=== PATIENT | female | born 1980 | race African-American/Black ===

== ENCOUNTER 2023-07-13 23:25 | Emergency (ER) | payer OTHER, MEDICAID, SELFPAY ==
[2023-07-13 23:30] VITALS: BP 217/147; PULSE 115; RESP 16; TEMP 36.6; O2SAT 97; BMI 25.9
--- NOTE | 2023-07-13 23:49 | EX.ED.DYSGE1 ---
HPI History of Present Illness Chief Complaint: Hypertension Informant: patient Onset/Context/Timing Onset: Today Context: Gradual Onset Timing: Continuous Worsened by: Nothing Relieved by: Nothing Narrative Narrative: Patient presents with elevated blood pressure that was noticed tonight. Patient states that she was at a opiate rehab facility when they checked her blood pressure tonight. Patient states it was very high. Patient states she has not been taking her antihypertensive medications for past several months due to insurance coverage. Patient states she used to be on lisinopril and a beta-vic. Patient admits to occasional back pain. Patient denies any chest pain or shortness of breath. Patient denies any headaches. Patient denies any nausea or vomiting. Patient denies any fevers or chills. PFSH [facility] Medical History (Updated 07/14/23 @ 01:[address] Carson Stack DO) Fibromyalgia Hypertension Kidney stones Osteoporosis Home Medications lisinopril 20 mg-hydrochlorothiazide 25 mg tablet (Zestoretic) 1 ea PO DAILY 10/27/16 [History Last Taken Unknown] clonidine HCl 0.2 mg tablet 0.2 mg PO DAILY #10 tabs 07/14/23 [Rx Last Taken Unknown] Allergy/AdvReac Type Severity Reaction Status Date / Time acetaminophen Allergy Other Verified 07/13/23 23:26 [From Darvocet-N] ketorolac [From Toradol] Allergy Other Verified 07/13/23 23:26 Penicillins Allergy Rash Verified 07/13/23 23:26 propoxyphene Allergy Other Verified 07/13/23 23:26 [From Darvocet-N] sumatriptan [From Imitrex] Allergy Other Verified 07/13/23 23:26 topiramate [From Topamax] Allergy Other Verified 07/13/23 23:26 tramadol Allergy Other Verified 07/13/23 23:26 Surgical History (Updated 07/13/23 @ 23:[address] Carson Stack DO) History of appendectomy History of back surgery History of hysterectomy Social History (Updated 07/13/23 @ 23:[address] Carson Stack DO) Smoking Status: Current every day smoker tobacco type: cigarettes ROS ROS ED Constitutional Constitutional ED: Denies chills or fever(s) Eyes Eyes: Denies blurry vision or change in vision ENT ENT ED: Denies rhinorrhea or sore throat Cardiovascular Cardiovascular: Denies chest pain or palpitations Respiratory/Chest Respiratory/Chest: Denies cough or dyspnea Gastrointestinal Gastrointestinal: Denies nausea or vomiting Genitourinary Genitourinary ED: Denies dysuria or hematuria Musculoskeletal Musculoskeletal: Reports back pain; Denies neck pain Integumentary Denies abscess or rash Neurologic Neurologic: Denies headache(s) or weakness Allergic/Immunologic Allergic/Immunologic ED: Denies mouth swelling or urticaria EXAM Physical Exam Const Vital Signs: 07/13/23 23:26 07/13/23 23:30 07/14/23 00:31 Temperature 97.8 F Temperature Source Temporal Pulse Rate 115 H 104 H Respiratory Rate 16 20 H Respiratory Effort Normal Non-Labored Respiratory Pattern Normal Blood Pressure 217/147 H 212/134 H Blood Pressure Mean 170 160 Pulse Ox 97 94 Oxygen Delivery Method Room Air Room Air 07/14/23 00:56 07/14/23 01:19 Temperature Temperature Source Pulse Rate 94 86 Respiratory Rate 16 16 Respiratory Effort Respiratory Pattern Blood Pressure 187/112 H 152/104 H Blood Pressure Mean 137 120 Pulse Ox 96 96 Oxygen Delivery Method Room Air Room Air Positive well nourished and well developed General Appearance ED: well developed and NAD HEENT Reports moist mucous membranes Neck supple and no JVD Chest Wall palpation of chest normal Resp normal respiratory effort and clear to auscultation bilaterally Cardio regular rate and regular rhythm GI non-tender and non-distended Palpation: soft Extremity normal to inspection General Extremety ED: Negative for edema or tenderness General Extremity: Negative for edema Neuro oriented x3, CN's II-XII intact bilaterally and no sensory deficits noted Sensorium / Orientation: alert Motor Exam: strength 5/5 throughout Psych mental status grossly normal MDM MDM MDM Narrative Medical decision making narrative: Differential diagnosis includes hypertensive urgency, uncontrolled hypertension, cardiac dysrhythmia, opiate withdrawal, and medication noncompliance. EKG will be obtained to assess for cardiac dysrhythmia and cardiac ischemia. Chest x-ray will be obtained to assess for cardiomegaly and widened mediastinum. CBC will be obtained to assess for leukocytosis and anemia. Basic metabolic profile will be obtained to assess for electrolyte abnormality and renal function. High-sensitivity troponin will be obtained to assess for cardiac ischemia. Lab Data Labs: Laboratory Results - last 24 hr 07/14/23 00:16 WBC 5.9 RBC 5.14 Hgb 12.7 Hct 41.6 MCV 80.9 L MCH 24.7 L MCHC 30.5 L RDW Std Deviation 42.9 RDW Coeff of Addie 14.5 Plt Count 250 MPV 9.9 Immature Gran % (Auto) 0.300 Neut % (Auto) 44.0 L Lymph % (Auto) 43.5 H Casey % (Auto) 7.5 Eos % (Auto) 3.8 Baso % (Auto) 0.9 Absolute Neuts (auto) 2.6 Absolute Lymphs (auto) 2.55 Nucleated RBC % 0 Atypical Lymphocytes 1+ Sodium 139 Potassium 3.4 L Chloride 107 Carbon Dioxide 28.0 Anion Gap 4 L BUN 14 Creatinine 1.17 H Estim Creat Clear Calc 63.40 Est GFR (MDRD) Af Amer 65 Est GFR (MDRD) Non-Af 54 L BUN/Creatinine Ratio 12.0 Glucose 128 H Calcium 10.0 Troponin I High Sens 34 Radiography Chest X-Ray - ED: 2 View, Read by ED Physician, Read by Radiologist and No Acute Disease Diagnostic Testing: Clinical Impression(s) from Imaging Studies Chest X-Ray 07/14/23 00:00 IMPRESSION: No evidence of cardiopulmonary disease. Electronically Signed: Francisco J DiazDO at 0:44 EST , PA and lateral chest x-ray was obtained. There are 2 views. On my independent interpretation, lung del valle are clear. There is normal cardiac silhouette. Bony thorax is normal. There is no acute process noted. Radiologist also interpreted the x-ray and agrees. EKG Initial EKG: Attestation: I personally reviewed and interpreted this EKG as follows: Interpretation: Sinus Tachycardia (106) Comments: EKG was obtained. On my independent interpretation, it shows a sinus tachycardia with a rate of 106. MT interval was normal at 154 ms. QRS interval is normal at 82 ms. QTc interval is normal at 483 ms. Worden was normal at 7. There are no acute ST or T wave changes noted. There are no prior EKGs available for comparison. Prior EKG tracings: not available for review Prior: No Prior Treatment and Re-Evaluation :: Patient was given a dose of clonidine here. Patient's blood pressure improved to 130/98. Patient was given a prescription for clonidine. Patient was instructed to follow-up with a primary care physician in 5 to 7 days for reevaluation and further management of her blood pressure. Patient was instructed to keep a log of her daily blood pressures. Patient was instructed to return if worse in any way. Patient understood and was agreeable with the plan. All questions were answered. Discharge Plan Triage Chief Complaint: Hypertension ED Provider: Carson Stack Dx/Rx/DC Orders Clinical Impression: Hypertension Instructions: ED Hypertension New Begin Treatment Prescriptions: New clonidine HCl 0.2 mg tablet 0.2 mg PO DAILY Qty: 10 0RF No Action lisinopril-hydrochlorothiazide [Zestoretic] 1 EACH tablet 1 ea PO DAILY Primary Care Provider: Care Physician,No Primary Referrals: Denisse Estrada [Non-Staff] - 3-5 Days Care Physician,No Primary [Primary Care Provider] - Activity Restrictions/Additional Instructions: Keep a log of your blood pressures daily. Disposition Disposition: Home, Self Care
--- NOTE | 2023-07-14 | RAD_ITS ---
INDICATION: Hypertension EXAMINATION/TECHNIQUE: X-RAY - XR Chest 2 Views COMPARISON: None. FINDINGS: LINES/DEVICES: None. LUNGS: No consolidation or evidence of an effusion. No evidence of edema or a pneumothorax. MEDIASTINUM AND CARDIOVASCULAR STRUCTURES: Cardiac silhouette is normal in size and contour. Mediastinum is unremarkable. BONES AND SOFT TISSUES: No acute abnormality. RAD/Chest PA and Lateral IMPRESSION: No evidence of cardiopulmonary disease. Electronically Signed: Francisco J Diaz DO at 0:44 EST ,
[2023-07-14] MEDS: cloNIDine HCl 0.2 MG Tablet 0.200000000000000011 MG PO (00:27)
[2023-07-14 00:31] VITALS: BP 212/134; PULSE 104; RESP 20; O2SAT 94
[2023-07-14 00:36] LABS: Absolute Lymphocyte Count 2.55 X10^3/uL (0.83-4.51); Absolute Neutrophil Count 2.6 X10^3/uL (2.0-7.7); Basophil# 0.05 X10^3/uL; Basophil% 0.9 % (0-1); Eosinophil# 0.22 X10^3/uL; Eosinophils% 3.8 % (0-5); Hematocrit 41.6 % (37-47); Hemoglobin 12.7 g/dL (12.0-15.0); Lymphocyte # 2.55 X10^3/ul (0.83-4.51); Lymphocyte % 43.5 % (19-41); Mean Corp Hgb Conc 30.5 g/dL (32-36); Mean Corpuscular Hgb 24.7 pg (27.0-32.0); Mean Corpuscular Volume 80.9 fL (81-99); Mean Platelet Vol. 9.9 fl (6.2-12.0); Monocyte# 0.44 X10^3/uL; Monocyte% 7.5 % (0-10); NRBC Flagged by Analyzer 0 % (0-5); Neutrophil # 2.58 X10^3/uL (2.7-7.7); POSITIVE MORPHOLOGY YES; Platelet Count 250 K/mm3 (150-450); RBC Distribution Width CV 14.5 % (11.6-14.6); RBC Distribution Width SD 42.9 fl (35.1-43.9); Red Blood Count 5.14 M/mm3 (4.2-5.4); White Blood Count 5.9 K/mm3 (4.4-11.0)
[2023-07-14 00:40] LABS: Differential Indicated SCAN CRITERIA MET
[2023-07-14 00:51] LABS: Anion Gap 4 (5-15); BUN 14 mg/dL (7-18); Chloride 107 mmol/L (98-107); Creatinine, Serum 1.17 mg/dL (0.55-1.02); EST Glomerular Filtration Rate 54 mL/min (>60); Est Glom Filt Rate - Afr Amer 65 mL/min (>60); Glucose 128 mg/dL (74-106); Potassium 3.4 mmol/L (3.5-5.1); Sodium Level 139 mmol/L (136-145); Troponin-I HS 34 pg/mL (3.0-54.0)
[2023-07-14 00:56] VITALS: BP 187/112; PULSE 94; RESP 16; O2SAT 96
[2023-07-14 01:08] LABS: Atypical Lymphocyte 1+ %
[2023-07-14 01:19] VITALS: BP 152/104; PULSE 86; RESP 16; O2SAT 96
[2023-07-14 01:43] VITALS: BP 130/98; PULSE 92; RESP 19; O2SAT 99
[2023-07-14 01:58] VITALS: PULSE 90; RESP 16; O2SAT 96
== END 2023-07-14 01:58 | disposition home or self-care (01) ==
PROVIDERS: Emergency Provider Emergency Medicine; Visit Provider Emergency Medicine
DX: I10 Essential (primary) hypertension (principal); T46.4X6A Underdosing of angiotensin-converting-enzyme inhibitors, initial encounter; T44.7X6A Underdosing of beta-adrenoreceptor antagonists, initial encounter; Z91.120 Patient's intentional underdosing of medication regimen due to financial hardship; M54.9 Dorsalgia, unspecified; F17.210 Nicotine dependence, cigarettes, uncomplicated
CPT/HCPCS: 71046; 80048; 84484; 85025; 93005; 99283

== ENCOUNTER 2024-02-17 00:39 | Emergency (ER) | payer OTHER, MEDICAID, SELFPAY ==
[2024-02-17] VITALS (14 sets, daily range): BP systolic 157–235; BP diastolic 60–150; PULSE 100–110; RESP 12–18; TEMP 36.7–36.8; O2SAT 97–100; BMI 27.6
--- NOTE | 2024-02-17 00:50 | CT_ITS ---
INDICATION: left flank pain EXAMINATION: CT ABDOMEN AND PELVIS WITHOUT CONTRAST - CT Abdomen And Pelvis W/O Contrast Injection TECHNIQUE: Helically acquired images were obtained of the abdomen and pelvis without oral or IV contrast. The protocol utilizes one or more of the following dose reduction techniques: automated exposure control, adjustment of mA and/or kV according to patient size,and/or use of iterative reconstruction technique. IV Contrast dosage and agent: None. Oral contrast: None. RADIATION DOSAGE (If Supplied By Facility): CTDIvol = ( 8.55 ) mGy, DLP = ( 401.41 ) mGycm COMPARISON: FINDINGS: LOWER CHEST: Lung bases are clear. No cardiomegaly or pericardial effusion. LIVER: Homogeneous. No focal mass. GALLBLADDER AND BILIARY TREE: No calcified gallstones. No gallbladder distension or wall edema. No intra- or extrahepatic biliary ductal dilation. PANCREAS: No focal cystic or solid mass. SPLEEN: Normal size without focal cystic or solid mass. ADRENAL GLANDS: No nodules. KIDNEYS AND URETERS: Bilateral kidney stones. There is moderate to severe left hydronephrosis due to the presence of 2 stones in the proximal left ureter at the UPJ measuring respectively 5 mm and 7 mm. There is perinephric fat stranding on the left side suggesting pyelonephritis. PERITONEUM: No ascites or free air. No other fluid collection. BOWEL: No evidence of acute appendicitis. No stomach or bowel distension. No focal inflammatory change. LYMPH NODES: No enlarged mesenteric or retroperitoneal lymph nodes. VESSELS: Aorta is non-dilated. URINARY BLADDER: Unremarkable. REPRODUCTIVE ORGANS: No pelvic masses. ABDOMINAL WALL: Umbilical hernia measures 4 cm containing fat. BONES: There is severe disc narrowing with advanced endplate erosions at L4-5. CT/Abdomen/Pelvis without Cont IMPRESSION: Bilateral kidney stones. There is moderate to severe left hydronephrosis due to the presence of 2 stones in the proximal left ureter at the UPJ measuring respectively 5 mm and 7 mm. There is perinephric fat stranding on the left side suggesting pyelonephritis. Severe disc narrowing with endplate erosions at L4-5 suggesting discitis osteomyelitis. Further evaluation by MRI would be helpful. Electronically Signed: Jevon Canas MD at 1:59 EDT ,
--- NOTE | 2024-02-17 00:51 | EX.ED.DYSGE1 ---
HPI History of Present Illness Chief Complaint: Flank Pain Detail of Chief Complaint: Flank pain Informant: patient Narrative Narrative: Patient presents with left flank pain that started around 2 PM yesterday. Pains been intermittent. Currently rates it a 10 out of 10. She has had nausea but no vomiting. Pain feels similarly to prior kidney stones. She complains of some frequency and urgency. Denies hematuria. Denies fevers. [facility] Medical History (Updated 02/17/24 @ 03:[address] Dannie Harper, DO) Kidney stones Fibromyalgia Osteoporosis Hypertension Home Medications ?Medication ?Instructions ?Recorded ?Last Taken ?Type NK 02/17/24 Unknown History Allergy/AdvReac Type Severity Reaction Status Date / Time acetaminophen (From Allergy Other Verified 02/17/24 00:46 Darvocet-N) ketorolac (From Toradol) Allergy Other Verified 02/17/24 00:46 Penicillins Allergy Rash Verified 02/17/24 00:46 propoxyphene (From Allergy Other Verified 02/17/24 00:46 Darvocet-N) sumatriptan (From Imitrex) Allergy Other Verified 02/17/24 00:46 topiramate (From Topamax) Allergy Other Verified 02/17/24 00:46 tramadol Allergy Other Verified 02/17/24 00:46 Surgical History History of back surgery History of hysterectomy History of appendectomy Social History (Updated 07/13/23 @ 23:[address] Carson Stack, DO) Smoking Status: Current every day smoker tobacco type: cigarettes ROS ROS ED Review of Systems ROS Unobtainable: other Constitutional Constitutional ED: Reports lethargy; Denies chills, fever(s), sweats or weight loss Eyes Eyes: Denies blurry vision, change in vision or diplopia ENT ENT ED: Denies rhinorrhea or sore throat Cardiovascular Cardiovascular: Reports chest pain and racing heartbeat; Denies orthopnea Respiratory/Chest Respiratory/Chest: Denies cough, dyspnea, dyspnea on exertion, orthopnea or sputum Gastrointestinal Gastrointestinal: Reports abdominal pain and nausea; Denies diarrhea or vomiting Genitourinary Genitourinary ED: Reports urinary frequency; Denies dysuria or hematuria Musculoskeletal Musculoskeletal: Reports back pain; Denies arthralgias, myalgias or neck pain Integumentary Denies abscess, Abrasions or rash Neurologic Neurologic: Denies headache(s) or weakness Psychiatric Psychiatric: Denies anxiety, depression or suicidal thoughts Endocrine Endocrinology: Denies polydipsia, polyphagia or polyuria Hematologic/Lymphatic Hematologic/Lymphatic: Denies easy bleeding, easy bruising or lymphadenopathy Allergic/Immunologic Allergic/Immunologic ED: Denies mouth swelling, tongue swelling or urticaria EXAM Physical Exam Const Vital Signs: 02/17/24 00:42 02/17/24 02:41 Temperature 98.3 F Temperature Source Temporal Pulse Rate 100 100 Respiratory Rate 16 18 Blood Pressure 235/150 H 224/134 H Blood Pressure Mean 178 164 Pulse Ox 100 99 Oxygen Delivery Method Room Air Room Air Positive well nourished and well developed General Appearance ED: well developed and NAD HEENT Reports TM's clear and moist mucous membranes normocephalic and atraumatic; Negative for trauma or tenderness Tympanic Membrane ED: Yes TM's clear Eyes PERRL and EOMs intact bilaterally General Eye ED: Negative for pale conjunctiva or scleral icterus Neck no lymphadenopathy, supple and no JVD General: Negative for tenderness Chest Wall inspection of chest normal and palpation of chest normal Chest: Negative for tenderness Resp normal respiratory effort and clear to auscultation bilaterally Effort and Inspection: Negative for respiratory distress or pain with movement Auscultation: Negative for rhonchi, wheezes or diminished lung sounds Cardio regular rate, regular rhythm, S1 normal heart sound, S2 normal heart sound and no murmurs Peripheral Pulses: pulses 2+ throughout GI normal to inspection, nondistended, normoactive bowel sounds, soft to palpation, non-distended and no masses GI Narrative: Tenderness palpation over the left lower quadrant with some mild guarding. There is no rebound, rigidity, or peritoneal signs. Patient does have some CVA tenderness on the left. Back/Spine no thoracic nor lumbar tenderness Back/Spine Narrative: Left CVA tenderness Extremity normal to inspection General Extremety ED: Negative for edema General Extremity: Negative for edema Neuro oriented x3, CN's II-XII intact bilaterally, no sensory deficits noted and gait normal Sensorium / Orientation: awake, alert, oriented to person, oriented to place and oriented to time Motor Exam: strength 5/5 throughout and strength abnormal Psych mental status grossly normal Skin no rashes or lesions noted and no wounds MDM MDM MDM Narrative Medical decision making narrative: Patient presents with left-sided flank pain typical of prior history of kidney stone. She presented hypertensive. IV line established. She was medicated with morphine and Zofran. She was a difficult IV stick. CBC with differential obtained showing a 7.2 hemoglobin 13.7 platelet count of 198. Chemistries unremarkable. Urinalysis without signs of infection. CT flank obtained showed left hydronephrosis with 2 proximal ureter stones 1 measuring 5 mm and one 7 mm. There was some perinephric stranding with question of pyelonephritis however her urinalysis does not show signs of infection. Patient had to be medicated with Dilaudid for continued pain. I did give her hydralazine for elevated blood pressures and gave her 10 mg IV. We do not have urology coverage. She will require transfer to be evaluated by urology. Attempted multiple hospital systems and had a difficult time finding availability for transfer. I did discuss case with [facility] in [place] and spoke with who accepted transfer of patient to their facility. Lab Data Attestation: I reviewed the patient's lab results. Labs: Laboratory Results - last 24 hr 02/17/24 02/17/24 00:58 01:50 WBC 7.2 RBC 4.95 Hgb 13.7 Hct 42.7 MCV 86.3 MCH 27.7 MCHC 32.1 RDW Std Deviation 44.4 H RDW Coeff of Addie 14.1 Plt Count 198 MPV 10.8 Immature Gran % (Auto) 0.300 Neut % (Auto) 54.3 Lymph % (Auto) 31.5 Appling % (Auto) 11.6 H Eos % (Auto) 1.5 Baso % (Auto) 0.8 Absolute Neuts (auto) 3.9 Absolute Lymphs (auto) 2.26 Nucleated RBC % 0 Sodium 138 Potassium 3.9 Chloride 106 Carbon Dioxide 26.0 Anion Gap 6 BUN 18 Creatinine 1.40 H Estim Creat Clear Calc 54.56 Est GFR (MDRD) Af Amer 53 L Est GFR (MDRD) Non-Af 43 L BUN/Creatinine Ratio 12.9 Glucose 120 H Calcium 9.3 Urine Color Yellow Urine Clarity Sl. Cloudy Urine pH 7.0 Ur Specific Bledsoe 1.010 Urine Protein 30 H Urine Glucose (UA) 100 H Urine Ketones Negative Urine Occult Blood 250 H Urine Nitrite Negative Urine Bilirubin Negative Urine Urobilinogen 1 H Ur Leukocyte Esterase Negative Urine RBC 0 SEEN Urine WBC 10-25 SEEN Ur Squamous Epith Cells 0-5 SEEN Urine Bacteria 0 SEEN Urine Mucus 0 SEEN Radiography Diagnostic Testing: Clinical Impression(s) from Imaging Studies Abdomen/Pelvis CT 02/17/24 00:50 IMPRESSION: Bilateral kidney stones. There is moderate to severe left hydronephrosis due to the presence of 2 stones in the proximal left ureter at the UPJ measuring respectively 5 mm and 7 mm. There is perinephric fat stranding on the left side suggesting pyelonephritis. Severe disc narrowing with endplate erosions at L4-5 suggesting discitis osteomyelitis. Further evaluation by MRI would be helpful. Electronically Signed: Jevon Canas MD at 1:59 EDT , Discharge Plan Triage Chief Complaint: Flank Pain ED Provider: Dannie Harper Dx/Rx/DC Orders Clinical Impression: Urolithiasis, Intractable pain, Hypertension Prescriptions: No Action NK Primary Care Provider: Care Physician,No Primary Referrals: Care Physician,No Primary [Primary Care Provider] - Print Language: Peruvian Disposition Disposition: DC/Tx to Another Type of HCF
[2024-02-17 01:00] LABS: Bacteria 0 SEEN /hpf (None Seen); Mucous, Urine 0 SEEN /hpf (<or=2+); Red Blood Cells-Urine 0 SEEN /hpf (0-5)
[2024-02-17 01:03] LABS: Color, Urine Yellow (Yellow); Glucose, Dipstick 100 mg/dl (Normal); Ketone-Dipstick Negative (Negative); Leukocyte Esterase-Dipstick Negative /ul (Negative); Nitrite-Dipstick Negative (Negative); Occult Blood-Urine 250 /ul (Negative); Protein-Dipstick 30 mg/dl (Negative); Urine Bilirubin Dipstick Negative (Negative); Urine Clarity Sl. Cloudy (Clear); Urine Urobilinogen 1 mg/dl (Normal)
[2024-02-17 01:15] LABS: Squamous Epithelial Cells - UA 0-5 SEEN /hpf (5-10); White Blood Cells 10-25 SEEN /hpf (0-5)
[2024-02-17 01:57] LABS: Absolute Lymphocyte Count 2.26 X10^3/uL (0.83-4.51); Absolute Neutrophil Count 3.9 X10^3/uL (2.0-7.7); Basophil# 0.06 X10^3/uL; Basophil% 0.8 % (0-1); Eosinophil# 0.11 X10^3/uL; Eosinophils% 1.5 % (0-5); Hematocrit 42.7 % (37-47); Hemoglobin 13.7 g/dL (12.0-15.0); Lymphocyte # 2.26 X10^3/ul (0.83-4.51); Lymphocyte % 31.5 % (19-41); Mean Corp Hgb Conc 32.1 g/dL (32-36); Mean Corpuscular Hgb 27.7 pg (27.0-32.0); Mean Corpuscular Volume 86.3 fL (81-99); Mean Platelet Vol. 10.8 fl (6.2-12.0); Monocyte# 0.83 X10^3/uL; Monocyte% 11.6 % (0-10); NRBC Flagged by Analyzer 0 % (0-5); Neutrophil # 3.89 X10^3/uL (2.7-7.7); Neutrophil % 54.3 % (47-70); Platelet Count 198 K/mm3 (150-450); RBC Distribution Width CV 14.1 % (11.6-14.6); RBC Distribution Width SD 44.4 fl (35.1-43.9); Red Blood Count 4.95 M/mm3 (4.2-5.4); White Blood Count 7.2 K/mm3 (4.4-11.0)
[2024-02-17] MEDS: 0.9% Normal Saline (1000mL) 1,000 ML 150 ML IV ×2 (02:06→09:09)
[2024-02-17] MEDS: Morphine 4 MG/ML Syringe IV (02:07)
[2024-02-17] MEDS: Ondansetron 4 MG/2 ML Vial IV (02:07)
[2024-02-17 02:11] LABS: Anion Gap 6 (5-15); BUN 18 mg/dL (7-18); BUN/Creat Ratio 12.9 RATIO (10-20); Calcium,Total 9.3 mg/dL (8.5-10.1); Chloride 106 mmol/L (98-107); EST Glomerular Filtration Rate 43 mL/min (>60); Est Glom Filt Rate - Afr Amer 53 mL/min (>60); Estimated Creatinine Clearance 54.56 ml/min; Glucose 120 mg/dL (74-106); Potassium 3.9 mmol/L (3.5-5.1); Sodium Level 138 mmol/L (136-145)
[2024-02-17] MEDS: HYDROmorphone 1 MG/ML Syringe IV ×2 (02:39→09:08)
[2024-02-17] MEDS: hydrALAZINE 20 MG/ML Vial 10 MG IV (03:19)
--- NOTE | 2024-02-17 08:47 | NURSING ---
[facility] ETA 45 MINUTES
== END 2024-02-17 09:50 | disposition short-term general hospital (02) ==
PROVIDERS: Emergency Provider Emergency Medicine; Visit Provider Emergency Medicine
DX: N13.2 Hydronephrosis with renal and ureteral calculous obstruction (principal); I10 Essential (primary) hypertension; M79.7 Fibromyalgia; F17.210 Nicotine dependence, cigarettes, uncomplicated
CPT/HCPCS: 74176; 80048; 81001; 85025; 87086; 87088; 96361; 96374; 96375; 96376; 99283; J7030; A4216; J2405